=== PATIENT | female | born 1970 ===

== ENCOUNTER 2019-02-17 10:26 | Outpatient (CLI) | payer OTHER ==
[~2019-02-17] VITALS: Ht 177.8 cm; Wt 79.4 kg
[2019-02-17] MEDS ORDERED: MEDROL4 MG PO (13:03)
[2019-02-17] MEDS ORDERED: LIPO-FLAVONOID1 EACH PO (13:03)
[2019-02-17] MEDS ORDERED: FLONASE16 GM NASAL (13:03)
[2019-02-17] MEDS ORDERED: ZYRTEC10 MG PO (13:03)
== END 2019-02-17 13:58 | disposition home or self-care (01) ==
LOC: OFIC 805 10:26
DX: R42 Dizziness and giddiness (principal); J31.0 Chronic rhinitis; J34.3 Hypertrophy of nasal turbinates; G44.89 Other headache syndrome

== ENCOUNTER 2019-04-14 10:33 | Outpatient (CLI) | payer OTHER ==
[~2019-04-14] VITALS: Ht 152.4 cm; Wt 79.4 kg
[~2019-04-14 10:33] MED LIST: FLONASE16 GM NASAL; LIPO-FLAVONOID1 EACH PO; MEDROL4 MG PO; ZYRTEC10 MG PO
[2019-04-14] MEDS ORDERED: FLONASE16 GM NASAL (13:58)
[2019-04-14] MEDS ORDERED: AMOX-CLAV 875-1 EACH PO (13:58)
[2019-04-14] MEDS ORDERED: ZYRTEC10 MG PO (13:58)
[2019-04-14] MEDS ORDERED: LIPO-FLAVONOID1 EACH PO (13:58)
== END 2019-04-14 10:45 | disposition home or self-care (01) ==
LOC: OFIC 805 10:33
DX: R42 Dizziness and giddiness (principal); J31.0 Chronic rhinitis; J34.3 Hypertrophy of nasal turbinates; G44.89 Other headache syndrome; J34.2 Deviated nasal septum; J34.9 Unspecified disorder of nose and nasal sinuses

== ENCOUNTER 2019-05-19 12:13 | Outpatient (CLI) | payer OTHER ==
[~2019-05-19] VITALS: Ht 152.4 cm; Wt 79.4 kg
[~2019-05-19 12:13] MED LIST changes: +AMOX-CLAV 875-1 EACH PO
[2019-05-19] MEDS ORDERED: BACITRACIN-POL3.5 GM OP (13:08)
[2019-05-19] MEDS ORDERED: PROVENTIL HFA6.7 GM IH (13:08)
== END 2019-05-19 12:30 | disposition home or self-care (01) ==
LOC: OFIC 805 12:13
DX: J31.0 Chronic rhinitis (principal); J45.909 Unspecified asthma, uncomplicated; J11.1 Influenza due to unidentified influenza virus with other respiratory manifestations; J34.9 Unspecified disorder of nose and nasal sinuses